=== PATIENT | female | born 1970 | race Caucasian/White ===

== ENCOUNTER 2017-09-02 03:57 | Emergency (ER) | payer BC, OTHER ==
[2017-09-02] MEDS ORDERED: LORazepam 2 MG/ML SDV IM ONE (04:53)
[2017-09-02] MEDS ORDERED: risperiDONE 0.5 MG Tab PO ONE (05:08)
[2017-09-02] MEDS ORDERED: FLUoxetine 10 MG Cap PO ONE (05:08)
--- NOTE | 2017-09-02 05:14 | EDM.PDOCBH ---
ED HPI GENERAL MEDICAL PROBLEM - General Chief Complaint: Behavioral/Psych Stated Complaint: HAVING TROUBLE WITH NEW MEDS Time Seen by Provider: 09/02/17 04:15 Source of Information: Reports: Patient History Limitations: Reports: No Limitations - History of Present Illness INITIAL COMMENTS - FREE TEXT/NARRATIVE: Patient is a 47-year-old female presents to the emergency department with complaints of feeling overly anxious after having stopped her medication. Patient states that for years she was taking Risperdal and Prozac however she thought that she was therapeutically better so she's talked with her primary care physician and was taken off of those medications. However she began to have symptoms that were concerning in April. She went into a deep depression and had a lot of anxiety. So her PMD had her see a psychiatrist who started her on lamotrigine. Now the patient was instructed that if she developed a rash to stop the medication as the rash would be life-threatening. So the patient developed a rash and she had stopped her lamotrigine but is now having psychiatric symptoms once again. Patient is feeling extremely anxious and she is feeling hypersexual and went into a depressed mood for days and did not want to do her activities of daily living and go outside. Patient denies being homicidal or suicidal but notes that she is having these other symptoms. She has an appointment to see the psychiatrist via telemedicine but that is not until the end of September. Patient denies any fever chills cough chest pain shortness of breath abdominal pain or any other symptoms at this time. Onset: Gradual Duration: Day(s):, Waxing/Waning Location: Reports: Other (See history of present illness) Quality: Reports: Other (See history of present illness) Severity: Moderate Improves with: Reports: Medication Worsens with: Reports: None Context: Reports: Other (See history of present illness) Associated Symptoms: Reports: Headaches, Loss of Appetite, Rash. Denies: Nausea /Vomiting, Seizure - Related Data Allergies Allergy/AdvReac Type Severity Reaction Status Date / Time baclofen Allergy Cannot Verified 09/02/17 04:13 Remember Home Meds: Home Meds Cyclobenzaprine [Flexeril] 10 mg PO TID PRN 09/02/17 [History] FLUoxetine HCl [Prozac] 10 mg PO DAILY #8 capsule 09/02/17 [Rx] FLUoxetine [PROzac] 10 mg PO DAILY 09/02/17 [History] Propranolol [Inderal] 40 mg PO DAILY 09/02/17 [History] risperiDONE [Risperdal] 0.5 mg PO QIDACANDBED #8 tablet 09/02/17 [Rx] Past Medical History HEENT History: Reports: Impaired Vision Gastrointestinal History: Reports: GERD Musculoskeletal History: Reports: Back Pain, Chronic, Neck Pain, Chronic Neurological History: Reports: Migraines Psychiatric History: Reports: Anxiety, Bipolar, Depression Endocrine/Metabolic History: Reports: Hyperparathyroidism Social & Family History - Tobacco Use Smoking Status *Q: Light Tobacco Smoker Years of Tobacco use: 25 Packs/Tins Daily: 0.2 - Caffeine Use Caffeine Use: Reports: Coffee, Energy Drinks, Soda - Recreational Drug Use Recreational Drug Use: No ED ROS GENERAL - Review of Systems Review Of Systems: See Below Constitutional: Reports: Decreased Appetite HEENT: Reports: No Symptoms Respiratory: Reports: No Symptoms Cardiovascular: Reports: No Symptoms Endocrine: Reports: No Symptoms GI/Abdominal: Reports: No Symptoms : Reports: No Symptoms Musculoskeletal: Reports: No Symptoms Skin: Reports: No Symptoms Neurological: Reports: Headache Psychiatric: Reports: Agitation, Anxiety, Cravings, Hallucinations (Auditory hallucinations; patient states it seems like music is playing but she knows it' s not.), Mood Lability. Denies: Depression, Homicidal Ideation, Suicidal Ideation Hematologic/Lymphatic: Reports: No Symptoms Immunologic: Reports: No Symptoms ED EXAM, BEHAVIORAL HEALTH - Physical Exam Exam: See Below Exam Limited By: No Limitations General Appearance: Alert, WD/WN, Anxious, Mild Distress Ears: Normal External Exam, Normal Canal, Hearing Grossly Normal, Normal TMs Nose: Normal Inspection, Normal Mucosa, No Blood Throat/Mouth: Normal Inspection, Normal Lips, Normal Teeth, Normal Gums, Normal Oropharynx, Normal Voice, No Airway Compromise Head: Atraumatic, Normocephalic Neck: Normal Inspection, Supple, Non-Tender, Full Range of Motion Respiratory/Chest: No Respiratory Distress, Lungs Clear, Normal Breath Sounds, No Accessory Muscle Use, Chest Non-Tender Cardiovascular: Normal Peripheral Pulses, Regular Rate, Rhythm, No Edema, No Gallop, No JVD, No Murmur, No Rub GI/Abdominal: Normal Bowel Sounds, Soft, Non-Tender, No Organomegaly, No Distention, No Abnormal Bruit, No Mass Back Exam: Full Range of Motion Extremities: Normal Inspection, Normal Range of Motion, Non-Tender, Normal Capillary Refill, No Pedal Edema Neurological: Alert, Normal Mood/Affect, CN II-XII Intact, Normal Cognition, Normal Gait, Oriented x 3 Psychiatric: Alert, Normal Cognition, Oriented, Restless, Tearful, Other ( Anxious) Skin Exam: Warm, Dry COURSE, BEHAVIORAL HEALTH COMP - Course Vital Signs: Last Vital Signs Temp 97.8 F 09/02/17 04:06 Pulse 81 09/02/17 04:06 Resp 20 09/02/17 04:06 BP 136/88 09/02/17 04:06 Pulse Ox 98 09/02/17 04:06 Orders, Labs, Meds: Laboratory Tests 09/02/17 09/02/17 Range/Units 05:05 05:05 WBC 8.34 (3.98-10.04) K/mm3 RBC 4.63 (3.98-5.22) M/mm3 Hgb 14.2 (11.2-15.7) gm/L Hct 42.6 (34.1-44.9) % MCV 92.0 (79.4-94.8) fl MCH 30.7 (25.6-32.2) pg MCHC 33.3 (32.2-35.5) g/dl RDW Std Deviation 42.5 (36.4-46.3) fL Plt Count 361 (182-369) K/mm3 MPV 9.2 L (9.4-12.3) fl Neut % (Auto) 49.1 (34.0-71.1) % Lymph % (Auto) 41.2 (19.3-51.7) % Snyder % (Auto) 7.4 (4.7-12.5) % Eos % (Auto) 1.9 (0.7-5.8) Baso % (Auto) 0.2 (0.1-1.2) % Neut # (Auto) 4.08 (1.56-6.13) K/mm3 Lymph # (Auto) 3.44 (1.18-3.74) K/mm3 Snyder # (Auto) 0.62 H (0.24-0.36) K/mm3 Eos # (Auto) 0.16 (0.04-0.36) K/mm3 Baso # (Auto) 0.02 (0.01-0.08) K/mm3 Sodium 139 (136-145) mEq/L Potassium 3.9 (3.5-5.1) mEq/L Chloride 106 (98-107) mEq/L Carbon Dioxide 22 (21-32) mEq/L Anion Gap 14.9 (5-15) BUN 21 H (7-18) mg/dL Creatinine 0.8 (0.55-1.02) mg/dL Est Cr Clr Drug Dosing 70.24 mL/min Estimated GFR (MDRD) > 60 (>60) mL/min BUN/Creatinine Ratio 26.3 H (14-18) Glucose 109 H (74-106) mg/dL Calcium 11.6 H (8.5-10.1) mg/dL Medications Discontinued Medications Generic Name Dose Route Start Last Admin Trade Name Freq PRN Reason Stop Dose Admin Fluoxetine HCl 10 mg 09/02/17 05:08 09/02/17 05:20 Prozac PO 09/02/17 05:09 10 mg ONETIME ONE Administration Lorazepam 0.5 mg 09/02/17 04:53 09/02/17 05:09 Ativan IM 09/02/17 04:54 0.5 mg ONETIME ONE Administration Risperidone 0.5 mg 09/02/17 05:08 09/02/17 05:20 Risperidal PO 09/02/17 05:09 0.5 mg ONETIME ONE Administration Departure - Departure Time of Disposition: 05:20 Disposition: Home, Self-Care 01 Condition: Good Clinical Impression: Bipolar 1 disorder, manic, mild, Bipolar 1 disorder, depressed, mild - Discharge Information *PRESCRIPTION DRUG MONITORING PROGRAM REVIEWED*: Not Applicable *COPY OF PRESCRIPTION DRUG MONITORING REPORT IN PATIENT SUAD: Not Applicable Prescriptions: FLUoxetine HCl [Prozac] 10 mg PO DAILY #8 capsule risperiDONE [Risperdal] 0.5 mg PO QIDACANDBED #8 tablet Instructions: [place], Living With Bipolar Disorder Referrals: Radha Charlton PA-C [Primary Care Provider] - Forms: ED Department Discharge
== END 2017-09-02 05:39 | disposition home or self-care (01) ==
LOC: JD.ED 03:57
DX: F31.9 Bipolar disorder, unspecified (principal); K21.9 Gastro-esophageal reflux disease without esophagitis; F17.210 Nicotine dependence, cigarettes, uncomplicated; Z88.8 Allergy status to other drugs, medicaments and biological substances; Z79.899 Other long term (current) drug therapy
CPT/HCPCS: 36415; 80048; 85025; 96372; 99283; A9270; J2060; 99284

== ENCOUNTER 2019-02-16 19:26 | Emergency (ER) | payer BC, OTHER, SELFPAY | END 2019-02-16 20:25 | disposition left against medical advice (07) | LOC: JD.ED 19:26 | DX: Z53.21 Procedure and treatment not carried out due to patient leaving prior to being seen by health care provider (principal) ==

== ENCOUNTER 2019-04-25 06:56 | Emergency (ER) | payer MEDICAID, OTHER ==
[2019-04-25] MEDS ORDERED: Ketorolac 30 MG/ML SDV IM ONE (07:52)
--- NOTE | 2019-04-25 07:59 | EDM.PDOC ---
ED HPI GENERAL MEDICAL PROBLEM - General Chief Complaint: Back Pain or Injury Stated Complaint: BACK PAIN Time Seen by Provider: 04/25/19 07:26 Source of Information: Reports: Patient, RN Notes Reviewed - History of Present Illness INITIAL COMMENTS - FREE TEXT/NARRATIVE: 49-year-old female comes in with left upper and mid back pain. She had onset of this just a very short time ago when she was "reaching or stretching". Is a constant ache. There is no radiation to her shoulder or arm. The pain is worse with motion, better to be still. 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 Musculoskeletal History: Reports: Back Pain, Chronic, Neck Pain, Chronic Neurological History: Reports: Migraines Psychiatric History: Reports: Anxiety, Bipolar, Depression Endocrine/Metabolic History: Reports: Hyperparathyroidism Hematologic History: Reports: None Immunologic History: Reports: None Oncologic (Cancer) History: Reports: None Dermatologic History: Reports: None - Infectious Disease History Infectious Disease History: Reports: None - Past Surgical History Female Surgical History: Reports: Tubal Ligation Neurological Surgical History: Reports: Lumbar Spine, Spinal Fusion Social & Family History - Tobacco Use Smoking Status *Q: Former Smoker Used Tobacco, but Quit: Yes Month/Year Tobacco Last Used: 2019 - Caffeine Use Caffeine Use: Reports: Coffee - Recreational Drug Use Recreational Drug Use: No ED ROS GENERAL - Review of Systems Review Of Systems: See Below Constitutional: Denies: Fever, Chills, Diaphoresis HEENT: Reports: No Symptoms Respiratory: Denies: Shortness of Breath Cardiovascular: Denies: Chest Pain GI/Abdominal: Denies: Abdominal Pain Musculoskeletal: Reports: Back Pain Skin: Reports: No Symptoms Neurological: Denies: Numbness, Tingling, Difficulty Walking, Weakness ED EXAM,LOWER BACK PAIN/INJURY - Physical Exam Exam: See Below General Appearance: Alert, No Apparent Distress Eye Exam: Bilateral Eye: PERRL Throat/Mouth: Normal Inspection Head: Atraumatic Neck: Supple Respiratory/Chest: No Respiratory Distress, Lungs Clear, Normal Breath Sounds Cardiovascular: Regular Rate, Rhythm GI/Abdominal: Soft, Non-Tender Extremities: Normal Inspection, Normal Range of Motion Neurological: Alert, No Motor/Sensory Deficits Skin Exam: Warm, Dry, Normal Color Course - Vital Signs Last Recorded V/S: Last Vital Signs Temp 98.0 F 04/25/19 08:13 Pulse 88 04/25/19 08:13 Resp 16 04/25/19 08:13 BP 96/63 04/25/19 08:13 Pulse Ox 99 04/25/19 08:13 - Orders/Labs/Meds Meds: Medications Discontinued Medications Generic Name Dose Route Start Last Admin Trade Name Kevan PRN Reason Stop Dose Admin Ketorolac Tromethamine 30 mg 04/25/19 07:52 04/25/19 08:03 Toradol IM 04/25/19 07:53 30 mg ONETIME ONE Administration Departure - Departure Time of Disposition: 07:57 Disposition: Home, Self-Care 01 Condition: Fair Clinical Impression: Back pain Qualifiers: Back pain location: low back pain Chronicity: acute Back pain laterality: left Sciatica presence: without sciatica Qualified Code(s): M54.5 - Low back pain - Discharge Information Instructions: Acute Back Pain, Adult Referrals: Radha Charlton PA-C [Primary Care Provider] - Forms: ED Department Discharge, ED Return to Work/School Form Additional Instructions: Rest back, no heavy lifting, alternate ice and heat as needed, you may continue ibuprofen or Motrin 2-3 times daily, take that with food so as not to upset your stomach. Follow-up with your regular medical provider in about 3 to 4 days for recheck. If this does not get better within 2 to 3 days as expected physical therapy would be a good option for further treatment. Sepsis Event Note - Evaluation Sepsis Screening Result: No Definite Risk - Focused Exam Vital Signs: Vital Signs Temp Pulse Resp BP Pulse Ox 04/25/19 08:13 98.0 F 88 16 96/63 99 Date Exam was Performed: 04/25/19 Time Exam was Performed: 19:31
== END 2019-04-25 08:16 | disposition home or self-care (01) ==
LOC: JD.ED 06:56
DX: M54.5 Low back pain (principal); Z88.8 Allergy status to other drugs, medicaments and biological substances; Z87.891 Personal history of nicotine dependence; Z79.899 Other long term (current) drug therapy
CPT/HCPCS: 96372; 99283; J1885

== ENCOUNTER 2019-08-07 16:10 | Emergency (ER) | payer MEDICAID ==
--- NOTE | 2019-08-07 16:41 | EDM.PDOC ---
ED HPI GENERAL MEDICAL PROBLEM - General Chief Complaint: Bite:Animal, Insect Stated Complaint: right hand cat scratch Time Seen by Provider: 08/07/19 16:21 Source of Information: Reports: Patient, RN Notes Reviewed History Limitations: Reports: No Limitations - History of Present Illness INITIAL COMMENTS - FREE TEXT/NARRATIVE: Patient is a 49-year-old female who presents to the ED for evaluation of a cat bite on her right hand. Patient states that she got a new kitten, who is up-to-date on its vaccinations. She states that she was trying to separate a cat fight yesterday as the kittens not been around any other cats prior to this. And the new kitten ended up biting her hand and scratching her right hand. There 1 puncture wound chaparro to the web spacing of the right hand near the thumb. There is associated redness surrounding the puncture wound. No drainage or bleeding noted from the wound. Patient states that the kitten just had its alive feline leukemia vaccine on and was worried that there was some crossover between humans and animals, and she did note the redness to the area so she comes to the ER for evaluation. Patient states that his quite painful to move her thumb due to the swelling. She did take 600 mg of ibuprofen at around 11:00 for pain management. Patient denies any sort of numbness or tingling distal to the injury. Patient denies any other sick-like symptoms, fever/chills, cough/shortness of breath, nausea/vomiting/diarrhea. - Related Data Allergies Allergy/AdvReac Type Severity Reaction Status Date / Time baclofen Allergy Cannot Verified 08/07/19 16:19 Remember Home Meds: Home Meds Gabapentin [Neurontin] 300 mg PO BEDTIME 02/16/19 [History] Ibuprofen 800 mg PO BID 02/16/19 [History] Metaxalone 800 mg PO TID 02/16/19 [History] Topiramate 1 tab PO DAILY 08/07/19 [History] Past Medical History HEENT History: Reports: Impaired Vision Gastrointestinal History: Reports: GERD Musculoskeletal History: Reports: Back Pain, Chronic, Neck Pain, Chronic Neurological History: Reports: Migraines Psychiatric History: Reports: Anxiety, Bipolar, Depression Endocrine/Metabolic History: Reports: Hyperparathyroidism, Other (See Below) Other Endocrine/Metabolic History: high calcium - Past Surgical History Female Surgical History: Reports: Tubal Ligation Neurological Surgical History: Reports: Lumbar Spine, Spinal Fusion Social & Family History - Tobacco Use Smoking Status *Q: Light Tobacco Smoker Years of Tobacco use: 35 Packs/Tins Daily: 0.1 - Caffeine Use Caffeine Use: Reports: None - Recreational Drug Use Recreational Drug Use: No ED ROS GENERAL - Review of Systems Review Of Systems: Comprehensive ROS is negative, except as noted in HPI. ED EXAM, ANIMAL BITE - Physical Exam Exam: See Below Exam Limited By: No Limitations General Appearance: Alert, WD/WN, No Apparent Distress Respiratory/Chest: No Respiratory Distress, Lungs Clear, Normal Breath Sounds, No Accessory Muscle Use, Chest Non-Tender Cardiovascular: Normal Peripheral Pulses, Regular Rate, Rhythm, No Murmur Peripheral Pulses: 3+: Radial (L), Radial (R) Extremities: Normal Range of Motion, Normal Capillary Refill, Increased Warmth (to right hand where the cat bit her), Redness (to right hand where the cat bit her) Neurological: Alert, Oriented, Normal Cognition, No Motor/Sensory Deficits Psychiatric: Normal Affect, Normal Mood Skin Exam: Normal Color, Warm/Dry, Other (Small circular puncture wound noted to the right web spacing of the right hand, surrounding erythema extends about 1 inch past the wound margin. Area is warm and tender to the touch. No fluctuance noted. No drainage noted.) Course - Vital Signs Last Recorded V/S: Last Vital Signs Temp 97 F 08/07/19 16:20 Pulse 95 08/07/19 16:20 Resp 16 08/07/19 16:20 BP 110/71 08/07/19 16:20 Pulse Ox 98 08/07/19 16:20 - Re-Assessments/Exams Free Text/Narrative Re-Assessment/Exam: 08/07/19 16:45 Patient presents to the ED for evaluation of her cat bite. She will be placed on Augmentin, and discharged home with general recommendations. Regarding the feline leukemia vaccine, I did discuss this with Dr. Lal, and he does not believe there to be any cross from humans to animals, but does recommend she follow-up with her vet on Thursday for further confirmation. I did already discuss this with her, and she agrees to call the Vet to see. Departure - Departure Time of Disposition: 16:39 Disposition: Home, Self-Care 01 Condition: Good Clinical Impression: Cat bite involving extremity - Discharge Information *PRESCRIPTION DRUG MONITORING PROGRAM REVIEWED*: No *COPY OF PRESCRIPTION DRUG MONITORING REPORT IN PATIENT SUAD: No Instructions: Animal Bite, Adult, [id number] Referrals: Radha Charlton PA-C [Primary Care Provider] - Forms: ED Department Discharge Additional Instructions: You were evaluated in the ER today regarding your cat bite on your right hand. You have been started on the antibiotic, Augmentin, please take 1 tab 2 times a day for the next 10 days or until told otherwise by different provider. This antibiotic can cause diarrhea, I recommend you take a probiotic while taking this antibiotic to help prevent diarrhea. These antibiotics can take up to 48 hours to start working, if you do not notice much of a difference in 3 days time, recommend you seek care for reevaluation of the wound. Please continue to use 600 mg ibuprofen every 4-6 hours for further pain relief, you may also try hot pack/cold packs to the area to provide relief from swelling and pain. You can also try to elevate the hand above the level of the heart while laying down or sitting, to help alleviate some of the swelling and pain as well. Please return to the ER at any time if your symptoms should change or worsen. Sepsis Event Note (ED) - Evaluation Sepsis Screening Result: No Definite Risk - Focused Exam Vital Signs: Vital Signs Temp Pulse Resp BP Pulse Ox 08/07/19 16:20 97 F 95 16 110/71 98
== END 2019-08-07 16:55 | disposition home or self-care (01) ==
LOC: JD.ED 16:10
DX: S61.451A Open bite of right hand, initial encounter (principal); Z88.8 Allergy status to other drugs, medicaments and biological substances; Z79.899 Other long term (current) drug therapy; F17.290 Nicotine dependence, other tobacco product, uncomplicated; W55.01XA Bitten by cat, initial encounter
CPT/HCPCS: 99283

== ENCOUNTER 2020-10-09 09:05 | Day surgery (SDC) | payer BC, MEDICAID ==
[~2020-10-09 09:05] MED LIST: Lactated Ringers 1,000 ML IV SCH; Lidocaine 1%/Sod Bicarbonate in NS 8.4% 1 ML Syringe IDERM PRN; Sodium Chloride 0.9% 10 ML Syringe FLUSH PRN
--- NOTE | 2020-10-09 09:39 | PCM.PREANE ---
Preanesthetic Assessment - Anesthesia/Transfusion/Family Hx Anesthesia History: Prior Anesthesia Without Reaction Family History of Anesthesia Reaction: No Transfusion History: No Prior Transfusion(s) Intubation History: Unknown - Review of Systems General: No Symptoms Pulmonary: No Symptoms Cardiovascular: No Symptoms Gastrointestinal: No Symptoms Neurological: No Symptoms Other: Reports: None - Physical Assessment NPO Status Date: 10/09/20 NPO Status Time: 05:30 ASA Class: 2 Mental Status: Alert & Oriented x3 Airway Class: Mallampati = 2 Dentition: Reports: Normal Dentition, Broken Tooth/Teeth (sm chip upper lt front) Thyro-Mental Finger Breadths: 3 Mouth Opening Finger Breadths: 3 ROM/Head Extension: Full Lungs: Clear to Auscultation, Normal Respiratory Effort Cardiovascular: Regular Rate, Regular Rhythm - Allergies Allergies/Adverse Reactions: Allergies Allergy/AdvReac Type Severity Reaction Status Date / Time baclofen Allergy Cannot Verified 10/08/20 18:20 Remember - Acknowledgements Anesthesia Type Planned: MAC Pt an Appropriate Candidate for the Planned Anesthesia: Yes Alternatives and Risks of Anesthesia Discussed w Pt/Guardian: Yes Pt/Guardian Understands and Agrees with Anesthesia Plan: Yes PreAnesthesia Questionnaire HEENT History: Reports: Hard of Hearing, Impaired Vision, Other (See Below) Other HEENT History: hearing loss, itchy eyes, sinus infection, tinnitis Cardiovascular History: Reports: None Respiratory History: Reports: None Gastrointestinal History: Reports: GERD, Other (See Below) Other Gastrointestinal History: elevated LFTs, heartburn Genitourinary History: Reports: UTI, Recurrent, Other (See Below) Other Genitourinary History: dysuria, frequency, kidney stones [employer]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 Musculoskeletal History: Reports: Arthritis, Back Pain, Chronic, Neck Pain, Chronic, Other (See Below) Other Musculoskeletal History: foot pain, leg weakness, lumbar pain, neck pain Neurological History: Reports: Headaches, Chronic, Migraines Psychiatric History: Reports: Anxiety, Bipolar, Depression Endocrine/Metabolic History: Reports: Hyperparathyroidism, Osteopenia, Other (See Below) Other Endocrine/Metabolic History: high calcium Hematologic History: Reports: None Immunologic History: Reports: None Oncologic (Cancer) History: Reports: None Dermatologic History: Reports: Other (See Below) Other Dermatologic History: cat bite, cellulitis, eczema, perianal lesion, perioral dermatitis, cold sores - Infectious Disease History Infectious Disease History: Reports: None - Past Surgical History Head Surgeries/Procedures: Reports: None HEENT Surgical History: Reports: Oral Surgery, Tonsillectomy Cardiovascular Surgical History: Reports: None Respiratory Surgical History: Reports: None GI Surgical History: Reports: None Female Surgical History: Reports: Breast Implant, Breast Reduction, Tubal Ligation Male Surgical History: Reports: None Endocrine Surgical History: Reports: None Neurological Surgical History: Reports: Lumbar Spine, Spinal Fusion Oncologic Surgical History: Reports: None Dermatological Surgical History: Reports: None - SUBSTANCE USE Tobacco Use Status *Q: Former Tobacco User Recreational Drug Use History: No - HOME MEDS Home Medications: Home Meds Ascorbic Acid [Vitamin C] 1,000 mg PO DAILY 10/08/20 [History] Cholecalciferol (Vitamin D3) [Vitamin D3] 2,000 unit PO DAILY 10/08/20 [History] Clindamycin Phos/Benzoyl Perox [Clindamycin-Benzoyl Perox 1-5%] 1 dose TOP DAILY PRN 10/08/20 [History] Cyanocobalamin (Vitamin B-12) [Vitamin B-12] 1,000 mcg PO DAILY 10/08/20 [History] Escitalopram Oxalate [Lexapro] 10 mg PO DAILY 10/08/20 [History] Gabapentin [Neurontin] 300 mg PO TID 10/08/20 [History] Ibuprofen 800 mg PO TID PRN 10/08/20 [History] Loratadine [Claritin] 10 mg PO DAILY 10/08/20 [History] Magnesium 250 mg PO DAILY 10/08/20 [History] Metaxalone [Skelaxin] 800 mg PO BEDTIME 10/08/20 [History] York-3S/DHA/Epa/Fish Oil [York-3 Fish Oil 1,200 mg Sfgl] 1 cap PO DAILY 10/08/20 [History] Omeprazole Magnesium [Prilosec Otc] 20 mg PO DAILY 10/08/20 [History] Topiramate 50 mg PO DAILY 10/08/20 [History] Vitamin B Complex [B Complex] 1 tab PO DAILY 10/08/20 [History] Vitamin E 400 unit PO DAILY 10/08/20 [History] Zinc Gluconate [Zinc] 30 mg PO ASDIRECTED 10/08/20 [History] buPROPion HCL [Wellbutrin Xl] 300 mg PO DAILY 10/08/20 [History] valACYclovir HCl [valACYclovir] 2 gm PO ASDIRECTED PRN 10/08/20 [History] - CURRENT (IN HOUSE) MEDS Current Meds: Current Medications Lactated Ringer's (Ringers, Lactated) 1,000 mls @ 125 mls/hr IV ASDIRECTED ASTON Stop: 10/09/20 23:00 Lidocaine/Sodium Bicarbonate (Lidocaine 1%/Sod Bicarbonate In Ns 8.4% 1 Ml Syringe) 0.25 ml IDERM ONETIME PRN PRN Reason: Prior to IV Start Stop: 10/09/20 18:00 Sodium Chloride (Sodium Chloride 0.9% 10 Ml Syringe) 10 ml FLUSH ASDIRECTED PRN PRN Reason: Keep Vein Open Stop: 10/09/20 18:00
[2020-10-09] MEDS ORDERED: Lidocaine 1% 4 ML ONE (10:28)
[2020-10-09] MEDS ORDERED: Propofol 200 MG/20 ML SDV ONE ×3 (10:28→10:48)
--- NOTE | 2020-10-09 10:56 | PCM.PRNOTE ---
- Free Text/Narrative Note: Date: 10/09/2020 Procedure: screening colonoscopy Indication: initial screening in patient with family history of colon cancer (mother) Endoscopist: Lane Ruth MD Findings: minor internal hemorrhoids. No polyps. Excellent prep. Detailed Report: The patient was taken to the endoscopy suite and placed in left lateral decubitus position. Timeout was performed and monitored anesthesia care was initiated. Visual inspection of the anus revealed no abnormality. Digital rectal exam was unremarkable; the cervix was palpated anteriorly. The colonoscope was inserted and advanced all the way to the cecum with ease. Although patient has had prior appendectomy, the appendiceal orifice was visualized. The ileocecal valve was visualized. Prep was excellent and the scope was slowly withdrawn as mucosal surfaces were carefully inspected. No polyps were identified. Withdrawal time was 8 min. On retroflexion within the rectum, grade 1 internal hemorrhoids were noted. Air was suctioned from the distal colon and rectum prior to withdrawal of the scope. The patient tolerated the procedure well.
--- NOTE | 2020-10-09 11:02 | PCM48HPAN ---
Post Anesthesia Note - EVALUATION WITHIN 48HRS OF ANESTHETIC Vital Signs in Normal Range: Yes Patient Participated in Evaluation: Yes Respiratory Function Stable: Yes Airway Patent: Yes Cardiovascular Function Stable: Yes Hydration Status Stable: Yes Pain Control Satisfactory: Yes Nausea and Vomiting Control Satisfactory: Yes Mental Status Recovered: Yes
== END 2020-10-09 11:56 | disposition home or self-care (01) ==
LOC: JD.SDS 09:05
PROVIDERS: ATTEND Surgery
DX: Z12.11 Encounter for screening for malignant neoplasm of colon (principal); K64.8 Other hemorrhoids; F17.210 Nicotine dependence, cigarettes, uncomplicated; Z88.8 Allergy status to other drugs, medicaments and biological substances; Z80.0 Family history of malignant neoplasm of digestive organs; Z79.899 Other long term (current) drug therapy
CPT/HCPCS: 45378; J2704; J7120; 00812

== ENCOUNTER 2021-03-24 07:25 | Emergency (ER) | payer BC ==
[2021-03-24] MEDS ORDERED: Albuterol 0.083% 2.5 MG/3 ML Neb Soln NEB ONE (07:57)
[2021-03-24] MEDS ORDERED: Albuterol 6.7 GM Inhaler INH ONE (09:02)
== END 2021-03-24 09:25 | disposition home or self-care (01) ==
LOC: JD.ED 07:25
DX: U07.1 COVID-19 (principal); K21.9 Gastro-esophageal reflux disease without esophagitis; Z87.891 Personal history of nicotine dependence; Z88.8 Allergy status to other drugs, medicaments and biological substances; Z79.899 Other long term (current) drug therapy
CPT/HCPCS: 36415; 71045; 80053; 85025; 85379; 86140; 94640; 99285; A9270

== ENCOUNTER 2022-04-11 14:23 | Emergency (ER) | payer MEDICAID ==
[2022-04-11] MEDS ORDERED: Sodium Chloride 0.9% 1,000 ML IV ONE (15:04)
[2022-04-11] MEDS ORDERED: Sodium Chloride 0.9% 10 ML Syringe FLUSH PRN (15:04)
[2022-04-11 15:56] LABS: ESTIMATED GFR 109 mL/min (>60)
[2022-04-11 16:02] LABS: ACETAMINOPHEN 0 ug/mL (10-30)
[2022-04-11] MEDS ORDERED: Gabapentin 300 MG Cap PO ONE (17:57)
[2022-04-11] MEDS ORDERED: Pantoprazole 40 MG Tab.CR PO STA (17:57)
[2022-04-11] MEDS ORDERED: LORazepam 2 MG/ML SDV IVPUSH ONE (18:34)
[2022-04-11] MEDS ORDERED: Ondansetron 4 MG Tab.DIS PO ONE (18:51)
[2022-04-12] MEDS ORDERED: Ibuprofen 400 MG Tab PO ONE (06:23)
[2022-04-12] MEDS ORDERED: LORazepam 1 MG Tab PO ONE (08:41)
== END 2022-04-12 09:12 ==
LOC: JD.ED 14:23
DX: T50.902A Poisoning by unspecified drugs, medicaments and biological substances, intentional self-harm, initial encounter (principal); F32.A Depression, unspecified; K21.9 Gastro-esophageal reflux disease without esophagitis; Z88.8 Allergy status to other drugs, medicaments and biological substances; Z86.16 Personal history of COVID-19; Z20.822 Contact with and (suspected) exposure to COVID-19
CPT/HCPCS: 36415; 80053; 80143; 80179; 80306; 80307; 84443; 84702; 85025; 87635; 93005; 94762; 96361; 96374; 99285; A9270; J2060; J3490; J7030; 93010; 99284; U0002

== ENCOUNTER 2023-11-06 14:39 | Emergency (ER) | payer BC, MEDICAID ==
[2023-11-06] MEDS: HYDROmorphone 0.5 MG/0.5 ML Syringe IVPUSH ONE (15:50)
[2023-11-06] MEDS: Ondansetron 4 MG/2 ML SDV IVPUSH ONE (15:50)
[2023-11-06] MEDS: Sodium Chloride 0.9% 10 ML Syringe FLUSH PRN (15:59)
[2023-11-06] MEDS: Sodium Chloride 0.9% 1,000 ML IV ONE (16:01)
[2023-11-06 16:31] LABS: BASOPHILS PERCENT AUTO 0.5 % (0.0-1.0); EOSINOPHILS ABSOLUTE AUTO 0.1 K/mm3 (0.0-0.4); HEMATOCRIT 40.1 % (37.0-47.0); HEMOGLOBIN 13.4 gm/dl (12.0-16.0); IMMATURE GRAN ABSOLUTE AUTO 0.01 K/mm3 (0.00-0.05); IMMATURE GRAN PERCENT AUTO 0.2 % (0.0-0.4); LYMPHOCYTES ABSOLUTE AUTO 1.8 K/mm3 (1.0-4.8); LYMPHOCYTES PERCENT AUTO 28.3 % (24.0-44.0); MEAN CORPUSCULAR HEMOGLOBIN 31.5 pg (28.0-32.0); MEAN CORPUSCULAR HGB CONC 33.4 g/dl (32.0-36.0); MEAN CORPUSCULAR VOLUME 94.1 fl (83.0-99.0); MEAN PLATELET VOLUME 9.9 fl (9.4-12.3); MONOCYTES ABSOLUTE AUTO 0.4 K/mm3 (0.0-0.8); NEUTROPHILS ABSOLUTE AUTO 4.1 K/mm3 (1.8-7.7); PLATELET COUNT,PLT 245 K/mm3 (150-400); RED BLOOD CELL COUNT 4.26 M/mm3 (4.10-5.30)
[2023-11-06 16:44] LABS: APPEARANCE,URINE CLEAR (Clear); BILIRUBIN,URINE NEGATIVE (Negative); COLOR,URINE YELLOW (Yellow); GLUCOSE,URINE NEGATIVE (Negative); KETONES,URINE NEGATIVE (Negative); LEUKOCYTE ESTERASE,URINE 1+ (Negative); NITRITE,URINE NEGATIVE (Negative); OCCULT BLOOD,URINE 3+ (Negative); PH,URINE 6.5 (5.0-8.0); PROTEIN,URINE NEGATIVE (Negative)
[2023-11-06 16:45] LABS: LACTIC ACID 1.2 mmol/L (0.4-2.0)
[2023-11-06 16:49] LABS: BACTERIA,URINE FEW /hpf (FEW); MUCUS,URINE FEW /hpf (FEW)
[2023-11-06 16:52] LABS: A/G RATIO 1.1 (1-2); ALBUMIN 3.7 g/dl (3.4-5.0); ANION GAP 12.2 (5-15); BILIRUBIN TOTAL 0.5 mg/dL (0.2-1.0); BUN/CREATININE RATIO 8.8 (14-18); CALCIUM 9.1 mg/dL (8.5-10.1); CREATININE 0.8 mg/dL (0.55-1.02); EST CRCL DRUG DOSING (CG) 65.8 mL/min; POTASSIUM,K 3.2 mEq/L (3.5-5.1)
[2023-11-06] MEDS: Amoxicillin/Clavulanate K 875-125 MG Tab PO ONE (19:21)
[2023-11-06] MEDS: Potassium Chloride 20 MEQ Tab.ER PO ONE (19:21)
== END 2023-11-06 19:30 | disposition home or self-care (01) ==
LOC: JD.ED 14:39
DX: N39.0 Urinary tract infection, site not specified (principal); E87.6 Hypokalemia; Z88.8 Allergy status to other drugs, medicaments and biological substances; Z79.899 Other long term (current) drug therapy; Z86.16 Personal history of COVID-19
CPT/HCPCS: 36415; 74176; 76705; 80053; 81001; 83605; 85025; 87086; 87088; 87186; 96374; 96375; 99284; A9270; J1170; J2405; J3490; J7030